=== PATIENT | female | born 1975 | race Caucasian/White ===

== ENCOUNTER 2022-05-22 08:29 | Outpatient (REF) | payer OTHER, SELFPAY ==
[2022-05-22 11:23] LABS: MANUAL DIFF FLAG NO
[2022-05-22 11:29] LABS: Basophils Percent Auto 0.4 % (0-2); Eosinophils Absolute Auto 0.1 X10*3/uL (0.0-0.4); Eosinophils Percent Auto 1.7 % (0-4); Hematocrit 37.2 % (37.0-47.0); Hemoglobin 11.6 g/dl (12.0-16.0); Imm Gran Abs Auto 0.01 X10*3/uL (0.00-0.03); Imm Gran Pct Auto 0.2 % (0.0-0.4); Lymphocytes Absolute Auto 1.3 X10*3/uL (1.2-4.9); Lymphocytes Percent Auto 24.2 % (20-40); Mean Corpuscular HGB Conc 31.2 g/dl (31.0-35.0); Mean Corpuscular Hemoglobin 25.8 pg (27.0-33.0); Mean Corpuscular Volume 82.7 fL (80.0-98.0); Monocytes Absolute Auto 0.3 X10*3/uL (0.1-1.2); Monocytes Percent Auto 5.8 % (2-11); Neutrophils Absolute Auto 3.5 x10*3/uL (2.0-8.3); Neutrophils Percent Auto 67.7 % (45-73); Platelet Count 303 X10*3/uL (160-400); Red Cell Distribution Width 15.9 % (11.0-16.0); White Blood Count 5.2 X10*3/uL (4.8-10.8)
[2022-05-22 12:21] LABS: Alanine Aminotransferase 36 U/L (0-31); Albumin Level 3.7 g/dL (3.5-5.0); Alkaline Phosphatase 101 U/L (39-117); Anion Gap 13 (12-20); Aspartate Amino Transferase 35 U/L (5-31); Bilirubin Total 0.4 mg/dL (0.0-1.0); Blood Urea Nitrogen 12 mg/dL (9-16); Calcium 9.1 mg/dL (8.4-10.2); Carbon Dioxide 28 mmol/L (22-29); Chloride 102 mmol/L (96-108); Cholesterol 200 mg/dL; Estimated Glomerular Filt Rate > 60; Glucose Fasting 117 mg/dL (60-99); HDL Cholesterol 50 mg/dL; LDL Cholesterol Calculated 129 mg/dl; Potassium 4.4 mmol/L (3.3-5.1); Sodium 139 mmol/L (135-145); TSH reflex Free T4 2.68 uIU/mL (0.32-4.0); Total Protein 7.4 g/dL (6.5-8.0); Triglycerides 109 mg/dL
[2022-05-22 12:31] LABS: Estimated Average Glucose 137 mg/dL; Hemoglobin A1c % 6.4 %
== END 2022-05-22 08:30 | disposition home or self-care (01) ==
LOC: HO.HMGCLDS 08:29
PROVIDERS: PCP Internal Medicine; Visit Provider Internal Medicine
DX: Z00.00 Encounter for general adult medical examination without abnormal findings (principal); E66.3 Overweight
CPT/HCPCS: 36415; 80053; 80061; 83036; 84443; 85025

== ENCOUNTER 2022-11-29 13:55 | Outpatient (AMB) | payer OTHER, SELFPAY ==
--- NOTE | 2022-11-29 14:02 | MHC.PC.OV ---
Vital Signs 11/29/22 14:03 Height 5 ft 6 in Weight 309 lb 6 oz BMI 49.9 BP 152/88 H Blood Pressure Location Lt brachial Position Sitting Pulse 74 Pulse Source Pulse Oximeter Pulse Oximetry (%) 97 Oxygen Delivery Method Room Air Intake Visit Reasons: 1 month follow up HTN Intake Note: pt is here for 1 month follow up for HTN Allergies No Known Allergies Allergy (Verified 11/29/22 14:05) Medication List - Last Reconciled 11/29/22 by Lisa Luo MD olmesartan 40 mg PO DAILY Tobacco use date assessed: 11/29/22 Dental Screening Dental Screen Date: 11/29/22 Did you have a dental visit in the last 12 months?: Yes Did you have a dental problem in the last 6 months where you did not have access to dental care?: No Was dental information given to patient?: Patient has dentist HPI 1 month follow up HTN HPI Details Pt presents for f/u HTN. Pt's 21-year-old son was diagnosed with T-cell lymphoma. Patient has been compliant taking olmesartan regularly. PFSH Family History Mother Mental health disorder Father HTN (hypertension) Social History Household Members Other:: lives with son, 4 adult children, works at [employer], smokes 4 cig, Housing: House Patient Tobacco Use Status: Current everyday Tobacco user Cigarettes Per Day: 4 e-Cigarette/Vaping Use: Never Used service: No Current occupational status: employed Cognitive needs: No Hearing needs: No Vision needs: No Questionnaire Thrive Questionnaire Date Thrive assessed: 05/22/22 MIGUEL ANGEL-7 AMB Questionnaire MIGUEL ANGEL-7 Date MIGUEL ANGEL - 7 assessed: 05/22/22 Source: Developed by Drs. Duane Pan, Janina García, Jones Johnson and colleagues, with an educational michelle from [employer]. Review of Systems Const All systems reviewed & are unremarkable except as noted in HPI and below Reports no additional complaints Eyes Reports no additional complaints ENT Reports no additional complaints Card Reports no additional complaints Resp Reports no additional complaints GI Reports no additional complaints Reports no additional complaints Physical exam (Primary Care) Vital Signs: Last Vital Signs Pulse 74 11/29/22 14:03 BP 152/88 H 11/29/22 14:03 Pulse Ox 97 11/29/22 14:03 Oxygen Delivery Method Room Air 11/29/22 14:03 BMI result Body Mass Index 49.9 Tobacco/Smoking Status: Tobacco use Status Tobacco use date assessed 11/29/22 11/29/22 14:08 Patient Tobacco Use Status Current everyday Tobacco 11/29/22 14:08 e-Cigarette/Vaping Use Never Used 11/29/22 14:08 Thrive Assessment: Date of Thrive Assessment Date Thrive assessed 05/22/22 11/29/22 14:08 Const General: no acute distress HENMT Mouth: Normal oral and palatal mucosa present Throat: Yes posterior oropharynx normal Neck Neck: Yes supple Resp Effort & Inspection: normal respiratory effort Auscultation: clear to auscultation bilaterally Cardio Rhythm: regular rhythm Heart sounds: S1 normal heart sound present and S2 normal heart sound present Assessment and Plan Assessment & Plan (1) HTN (hypertension): Code(s): I10 - Essential (primary) hypertension Plan: Add 5 mg of amlodipine to olmesartan follow-up in 1 month for blood pressure check (2) Hyperlipidemia: Code(s): E78.5 - Hyperlipidemia, unspecified Plan: Continue low-cholesterol diet patient will return tomorrow for fasting blood work (3) Hyperglycemia: Comment: A1C 6.4, 06/20 , started ADA diet Code(s): R73.9 - Hyperglycemia, unspecified Plan: Checking A1c Orders: Orders Comprehensive [place]. Panel Fast Today E78.5 - Hyperlipidemia, unspecified, I10 - Essential (primary) hypertension, R73.9 - Hyperglycemia, unspecified, R79.89 - Other specified abnormal findings of blood chemistry Hemoglobin A1c Today E78.5 - Hyperlipidemia, unspecified, I10 - Essential (primary) hypertension, R73.9 - Hyperglycemia, unspecified, R79.89 - Other specified abnormal findings of blood chemistry Lipid Panel Today E78.5 - Hyperlipidemia, unspecified, I10 - Essential (primary) hypertension, R73.9 - Hyperglycemia, unspecified, R79.89 - Other specified abnormal findings of blood chemistry Complete Blood Count Auto Diff Today E78.5 - Hyperlipidemia, unspecified, I10 - Essential (primary) hypertension, R73.9 - Hyperglycemia, unspecified, R79.89 - Other specified abnormal findings of blood chemistry Microalbumin, Random (w Creat) Today E78.5 - Hyperlipidemia, unspecified, I10 - Essential (primary) hypertension, R73.9 - Hyperglycemia, unspecified, R79.89 - Other specified abnormal findings of blood chemistry Hepatitis B,C Profile Today R79.89 - Other specified abnormal findings of blood chemistry Medications: New amlodipine 5 mg PO DAILY 90 tabs 0RF Coding Level of Care Code Est Pt Level 3 (41008) Diagnoses HTN (hypertension) I10 Hyperlipidemia E78.5 Hyperglycemia R73.9
[2022-11-29 14:03] VITALS: BP 152/88; PULSE 74; O2SAT 97; BMI 49.9
== END 2022-11-29 14:59 | disposition home or self-care (01) ==
PROVIDERS: PCP Internal Medicine; Visit Provider Internal Medicine
DX: I10 Essential (primary) hypertension (principal); E78.5 Hyperlipidemia, unspecified; R73.9 Hyperglycemia, unspecified
CPT/HCPCS: 99213

== ENCOUNTER 2023-03-07 12:39 | Outpatient (AMB) | payer OTHER, SELFPAY ==
--- NOTE | 2023-03-07 12:40 | A.OFFPC_ITS ---
Vital Signs 03/07/23 12:47 Height 5 ft 6 in Weight 315 lb BMI 50.8 BP 158/88 H Blood Pressure Location Lt brachial Position Sitting Pulse 79 Pulse Source Pulse Oximeter Pulse Oximetry (%) 99 Oxygen Delivery Method Room Air Intake Visit Reasons: BP Re-check Intake Note: Pt is here today for a b/p re-check Allergies No Known Allergies Allergy (Verified 03/07/23 12:50) Tobacco use date assessed: 03/07/23 Dental Screening Dental Screen Date: 03/07/23 Did you have a dental visit in the last 12 months?: Yes Did you have a dental problem in the last 6 months where you did not have access to dental care?: No Was dental information given to patient?: Patient has dentist [facility] Family History Mother Mental health disorder Father HTN (hypertension) Social History Household Members Other:: lives with son, 4 adult children, works at [employer], smokes 4 cig, Housing: House Patient Tobacco Use Status: Current everyday Tobacco user Cigarettes Per Day: 4 e-Cigarette/Vaping Use: Never Used service: No Current occupational status: employed Cognitive needs: No Hearing needs: No Vision needs: No Questionnaire Thrive Questionnaire Date Thrive assessed: 05/22/22 MIGUEL ANGEL-7 AMB Questionnaire MIGUEL ANGEL-7 Date MIGUEL ANGEL - 7 assessed: 05/22/22 Source: Developed by Drs. Duane Pan, Janina García, Jones Johnson and colleagues, with an educational michelle from [employer]. Physical exam (Primary Care) Vital Signs: Last Vital Signs Pulse 79 03/07/23 12:47 BP 158/88 H 03/07/23 12:47 Pulse Ox 99 03/07/23 12:47 Oxygen Delivery Method Room Air 03/07/23 12:47 BMI result Body Mass Index 50.8 Tobacco/Smoking Status: Tobacco use Status Tobacco use date assessed 03/07/23 03/07/23 12:51 Patient Tobacco Use Status Current everyday Tobacco 03/07/23 12:40 e-Cigarette/Vaping Use Never Used 03/07/23 12:40 Thrive Assessment: Date of Thrive Assessment Date Thrive assessed 05/22/22 03/07/23 12:40 Const General: no acute distress HENMT Head: Yes normal to inspection Throat: Yes posterior oropharynx normal Resp Effort & Inspection: normal respiratory effort Auscultation: clear to auscultation bilaterally Cardio Rhythm: regular rhythm Heart sounds: S1 normal heart sound present and S2 normal heart sound present GI Inspection: Yes normal to inspection Palpation (GI): Soft to palpation Percussion: Yes normal to percussion Auscultation: normal bowel sounds Assessment and Plan Assessment & Plan (1) HTN (hypertension): Code(s): I10 - Essential (primary) hypertension Plan: Amlodipine 5 mg and olmesartan 40 mg will be changed to combination amlodipine/olmesartan 10/40 and Dyazide will be added. Patient will have fasting blood work in 2 weeks and will follow-up in 1 month for blood pressure check (2) Hyperglycemia: Comment: A1C 6.4, 06/20 , started ADA diet Code(s): R73.9 - Hyperglycemia, unspecified Plan: ADA diet increase physical activity weight loss discussed with the patient. She will have A1c checked in 2 weeks (3) Sleep apnea: Code(s): G47.30 - Sleep apnea, unspecified Plan: For poorly controlled hypertension and witnessed apnea episodes sleep studies will be obtained to rule out sleep apnea (4) Elevated LFTs: Code(s): R79.89 - Other specified abnormal findings of blood chemistry Orders: Orders Comprehensive [place]. Panel Fast 2 Weeks E66.3 - Overweight, E78.5 - Hyperlipidemia, unspecified, I10 - Essential (primary) hypertension, R73.9 - Hyperglycemia, unspecified, R79.89 - Other specified abnormal findings of blood chemistry Hemoglobin A1c 2 Weeks E66.3 - Overweight, E78.5 - Hyperlipidemia, unspecified, I10 - Essential (primary) hypertension, R73.9 - Hyperglycemia, unspecified, R79.89 - Other specified abnormal findings of blood chemistry Complete Blood Count Auto Diff 2 Weeks E66.3 - Overweight, E78.5 - Hyperlipidemia, unspecified, I10 - Essential (primary) hypertension, R73.9 - Hyperglycemia, unspecified, R79.89 - Other specified abnormal findings of blood chemistry Hepatitis A,B,C Profile 2 Weeks E66.3 - Overweight, E78.5 - Hyperlipidemia, unspecified, I10 - Essential (primary) hypertension, R73.9 - Hyperglycemia, unspecified, R79.89 - Other specified abnormal findings of blood chemistry RT home sleep study Today G47.30 - Sleep apnea, unspecified, I10 - Essential (primary) hypertension Lipid Panel 2 Weeks E66.3 - Overweight, E78.5 - Hyperlipidemia, unspecified, I10 - Essential (primary) hypertension, R73.9 - Hyperglycemia, unspecified, R79.89 - Other specified abnormal findings of blood chemistry Microalbumin, Random (w Creat) 2 Weeks E66.3 - Overweight, E78.5 - Hyperlipidemia, unspecified, I10 - Essential (primary) hypertension, R73.9 - Hyperglycemia, unspecified, R79.89 - Other specified abnormal findings of blood chemistry Medications: New amlodipine-olmesartan 10-40 mg 1 tab PO DAILY 90 tabs 0RF triamterene-hydrochlorothiazid 37.5-25 mg 1 cap PO DAILY 90 caps 0RF Discontinued olmesartan Discontinued Reason: Doctor's Order 40 mg PO DAILY 90 tabs 1RF amlodipine Discontinued Reason: Doctor's Order 5 mg PO DAILY 90 tabs 0RF Coding Level of Care Code Est Pt Level 4 (92471) Diagnoses HTN (hypertension) I10 Hyperglycemia R73.9 Sleep apnea G47.30 Elevated LFTs R79.89
[2023-03-07 12:47] VITALS: BP 158/88; PULSE 79; O2SAT 99; BMI 50.8
== END 2023-03-07 13:26 | disposition home or self-care (01) ==
PROVIDERS: PCP Internal Medicine; Visit Provider Internal Medicine
DX: I10 Essential (primary) hypertension (principal); R73.9 Hyperglycemia, unspecified; G47.30 Sleep apnea, unspecified
CPT/HCPCS: 99214

== ENCOUNTER 2023-04-09 11:18 | Outpatient (AMB) | payer OTHER, SELFPAY ==
--- NOTE | 2023-04-09 11:21 | A.OFFPC_ITS ---
Vital Signs 04/09/23 11:22 Height 5 ft 6 in Weight 312 lb BMI 50.4 BP 142/72 H Blood Pressure Location Lt brachial Position Sitting Pulse 75 Pulse Source Pulse Oximeter Pulse Oximetry (%) 100 Oxygen Delivery Method Room Air Intake Visit Reasons: BP, med side effects Intake Note: Pt is here today for a follow up visit. Pt sates that her BP medication Triamterene-HCTZ 37.5-25 mg is making her dizzy, she gets cramps in her legs, flutter in her chest and her fingers turn white. Allergies No Known Allergies Allergy (Verified 03/07/23 12:50) Medication List - Last Reconciled 04/09/23 by Lisa Luo MD amlodipine-olmesartan 10-40 mg 1 tab PO DAILY triamterene-hydrochlorothiazid 37.5-25 mg 1 cap PO DAILY Tobacco use date assessed: 04/09/23 HPI BP, med side effects HPI Details Patient presents for the follow-up on hypertension, patient reports side effects since started taking Dyazide 2 weeks ago :having muscle aches, increased urination and feeling of coldness in her fingers and occasion headaches. Patient has been walking 3 times a week and eating healthy. PFSH Family History Mother Mental health disorder Father HTN (hypertension) Social History Household Members Other:: lives with son, 4 adult children, works at [employer], smokes 4 cig, Housing: House Patient Tobacco Use Status: Current everyday Tobacco user Cigarettes Per Day: 4 e-Cigarette/Vaping Use: Never Used service: No Current occupational status: employed Cognitive needs: No Hearing needs: No Vision needs: No Questionnaire Thrive Questionnaire Date Thrive assessed: 05/22/22 MIGUEL ANGEL-7 AMB Questionnaire MIGUEL ANGEL-7 Date MIGUEL ANGEL - 7 assessed: 05/22/22 Source: Developed by Drs. Duane Pan, Janina García, Jones Johnson and colleagues, with an educational michelle from [employer]. Review of Systems Const All systems reviewed & are unremarkable except as noted in HPI and below Reports no additional complaints Eyes Reports no additional complaints Card Reports no additional complaints Resp Reports no additional complaints GI Reports no additional complaints Reports no additional complaints Physical exam (Primary Care) Vital Signs: Last Vital Signs Pulse 75 04/09/23 11:22 BP 142/72 H 04/09/23 11:22 Pulse Ox 100 04/09/23 11:22 Oxygen Delivery Method Room Air 04/09/23 11:22 BMI result Body Mass Index 50.4 Tobacco/Smoking Status: Tobacco use Status Tobacco use date assessed 04/09/23 04/09/23 11:36 Patient Tobacco Use Status Current everyday Tobacco 04/09/23 11:21 e-Cigarette/Vaping Use Never Used 04/09/23 11:21 Thrive Assessment: Date of Thrive Assessment Date Thrive assessed 05/22/22 04/09/23 11:21 Const General: no acute distress HENMT Head: Yes normal to inspection Face and sinus: Yes normal facial exam Resp Effort & Inspection: normal respiratory effort Auscultation: clear to auscultation bilaterally Cardio Rhythm: regular rhythm Heart sounds: S1 normal heart sound present and S2 normal heart sound present GI Inspection: Yes normal to inspection Extrem General: Yes no clubbing, cyanosis or edema Assessment and Plan Assessment & Plan (1) Hyperglycemia: Comment: A1C 6.4, 06/20 , started ADA diet Code(s): R73.9 - Hyperglycemia, unspecified Plan: Continue ADA diet regular exercise and weight lost, check A1c today (2) HTN (hypertension): Code(s): I10 - Essential (primary) hypertension Plan: Patient will continue both medications, comprehensive panel will be checked today. She will follow-up in 2 weeks and if she still has side effects from Dyazide, medication will be changed (3) Elevated LFTs: Code(s): R79.89 - Other specified abnormal findings of blood chemistry Plan: Avoid NSAIDs alcohol simple carbohydrates check LFTs and hepatitis panel today Orders: Orders Complete Blood Count Auto Diff Today I10 - Essential (primary) hypertension, R73.9 - Hyperglycemia, unspecified Hemoglobin A1c Today I10 - Essential (primary) hypertension, R73.9 - Hyperglycemia, unspecified, R79.89 - Other specified abnormal findings of blood chemistry Hepatitis B,C Profile Today I10 - Essential (primary) hypertension, R73.9 - Hyperglycemia, unspecified, R79.89 - Other specified abnormal findings of blood chemistry Comprehensive Met. Panel Today I10 - Essential (primary) hypertension, R73.9 - Hyperglycemia, unspecified, R79.89 - Other specified abnormal findings of blood chemistry Coding Level of Care Code Est Pt Level 4 (84623) Diagnoses Hyperglycemia R73.9 HTN (hypertension) I10 Elevated LFTs R79.89
[2023-04-09 11:22] VITALS: BP 142/72; PULSE 75; O2SAT 100; BMI 50.4
== END 2023-04-09 12:15 | disposition home or self-care (01) ==
PROVIDERS: PCP Internal Medicine; Visit Provider Internal Medicine
DX: R73.9 Hyperglycemia, unspecified (principal); I10 Essential (primary) hypertension
CPT/HCPCS: 99214

== ENCOUNTER 2023-04-09 12:15 | Outpatient (REF) | payer OTHER, SELFPAY ==
[2023-04-09 13:14] LABS: MANUAL DIFF FLAG NO
[2023-04-09 13:28] LABS: Basophils Percent Auto 0.7 % (0-2); Eosinophils Absolute Auto 0.1 X10*3/uL (0.0-0.4); Eosinophils Percent Auto 1.7 % (0-4); Hematocrit 36.3 % (37.0-47.0); Hemoglobin 11.5 g/dl (12.0-16.0); Imm Gran Abs Auto 0.01 X10*3/uL (0.00-0.03); Imm Gran Pct Auto 0.2 % (0.0-0.4); Lymphocytes Absolute Auto 1.4 X10*3/uL (1.2-4.9); Lymphocytes Percent Auto 23.5 % (20-40); Mean Corpuscular HGB Conc 31.7 g/dl (31.0-35.0); Mean Corpuscular Hemoglobin 26.3 pg (27.0-33.0); Mean Corpuscular Volume 82.9 fL (80.0-98.0); Mean Platelet Volume 10.1 fL (9.4-12.3); Monocytes Absolute Auto 0.3 X10*3/uL (0.1-1.2); Monocytes Percent Auto 5.7 % (2-11); Neutrophils Absolute Auto 4.1 x10*3/uL (2.0-8.3); Neutrophils Percent Auto 68.2 % (45-73); Platelet Count 379 X10*3/uL (160-400); Red Blood Count 4.38 X10*6/uL (4.20-5.50); Red Cell Distribution Width 15.7 % (11.0-16.0)
[2023-04-09 13:35] LABS: Estimated Average Glucose 143 mg/dL; Hemoglobin A1c % 6.6 % (<6.0)
[2023-04-09 14:02] LABS: Alanine Aminotransferase 69 U/L (0-31); Albumin Level 3.8 g/dL (3.5-5.0); Alkaline Phosphatase 88 U/L (39-117); Anion Gap 10 (12-20); Aspartate Amino Transferase 64 U/L (5-31); Bilirubin Total 0.4 mg/dL (0.0-1.0); Blood Urea Nitrogen 14 mg/dL (9-16); Calcium 9.6 mg/dL (8.4-10.2); Carbon Dioxide 29 mmol/L (22-29); Chloride 101 mmol/L (96-108); Estimated Glomerular Filt Rate > 60; Glucose Random 173 mg/dL (60-115); Potassium 3.8 mmol/L (3.3-5.1); Sodium 136 mmol/L (135-145); Total Protein 7.9 g/dL (6.5-8.0)
[2023-04-10 08:02] LABS: HBS Num1 0.61 mIU/mL (0-7.99); HBc Num1 0.19 S/CO (0.00-0.79); HBsAGNum1 0.23 S/CO (0.00-0.99); Hepatitis B Core Antibody Nonreactive (Nonreactive); Hepatitis B Surface Antigen Negative (Negative); ~HepC Num1 0.14 S/CO (0.00-0.79); ~Hepatitis B Surface Antibody NONREACTIVE (Nonreactive); ~Hepatitis C Antibody Nonreactive (Nonreactive)
== END 2023-04-09 12:16 | disposition home or self-care (01) ==
LOC: HO.HMGCLDS 12:15
PROVIDERS: PCP Internal Medicine; Visit Provider Internal Medicine
DX: R73.9 Hyperglycemia, unspecified (principal); I10 Essential (primary) hypertension
CPT/HCPCS: 36415; 80053; 83036; 85025; 86704; 86706; 86803; 87340

== ENCOUNTER 2023-05-27 10:32 | Outpatient (AMB) | payer OTHER, SELFPAY ==
[2023-05-27 10:40] VITALS: BP 136/74; PULSE 72; O2SAT 98; BMI 50.4
--- NOTE | 2023-05-27 10:40 | MHC.PC.OV ---
Vital Signs 05/27/23 10:40 Height 5 ft 6 in Weight 312 lb BMI 50.4 BP 136/74 Blood Pressure Location Lt brachial Position Sitting Pulse 72 Pulse Source Pulse Oximeter Pulse Oximetry (%) 98 Oxygen Delivery Method Room Air Intake Visit Reasons: Annual PE Intake Note: Pt is here today for PE. Allergies No Known Allergies Allergy (Verified 05/27/23 10:46) Medication List - Last Reconciled 05/27/23 by Lisa Luo MD amlodipine-olmesartan 10-40 mg 1 tab PO DAILY blood sugar diagnostic (Accu-Chek Guide test strips) As directed to test blood sugar once a day blood-glucose meter (Accu-Chek Guide Glucose Meter) As directed lancets (Accu-Chek Softclix Lancets) As directed to test blood sugar once a day metformin ER 750 mg PO DAILY triamterene-hydrochlorothiazid 37.5-25 mg 1 cap PO DAILY Tobacco use date assessed: 05/27/23 Dental Screening Dental Screen Date: 05/27/23 Did you have a dental visit in the last 12 months?: Yes Did you have a dental problem in the last 6 months where you did not have access to dental care?: No Was dental information given to patient?: Patient has dentist HPI Annual PE HPI Details Patient presents for PE. PFSH Family History Mother Mental health disorder Father HTN (hypertension) Social History Household Members Other:: lives with son, 4 adult children, works at [employer], smokes 4 cig, Housing: House Patient Tobacco Use Status: Current everyday Tobacco user Cigarettes Per Day: 4 e-Cigarette/Vaping Use: Never Used service: No Current occupational status: employed Cognitive needs: No Hearing needs: No Vision needs: No Questionnaire PHQ-9 Over the last 2 weeks, how often have you been bothered by any of the following problems? 1. Little interest or pleasure in doing things: not at all 2. Feeling down, depressed, or hopeless: not at all 3. Trouble falling or staying asleep, or sleeping too much: not at all 4. Feeling tired or having little energy: not at all 5. Poor appetite or overeating: not at all 6. Feeling bad about yourself - or that you are a failure or have let yourself or your family down: not at all 7. Trouble concentrating on things, such as reading the newspaper or watching television: not at all 8. Moving or speaking so slowly that other people could have noticed. Or the opposite - being so fidgety or restless that you have been moving around a lot more than usual: not at all 9. Thoughts that you would be better off or of hurting yourself in some way: not at all Total score: 0 Depression Screening Interpretation: Negative Depression Screening Done: Yes Source: Developed by Drs. Duane Pan, Janina García, Jones Johnson and colleagues, with an educational michelle from [employer]. Thrive Questionnaire Date Thrive assessed: 05/27/23 I am a: Patient What is your living situation today?: I have a steady place to live Within the past 12 months, did the food you bought not last and you didn't have the money to get more?: Never true Within the past 12 months, did you worry whether your food would run out before you got money to buy more?: Never true Do you have trouble paying for medicines?: No Do you have trouble getting transportation to medical appointments?: No Do you have trouble paying your heating and electricity bill?: No Do you have trouble taking care of your child, family member or friend?: No Do you have trouble with day-to-day activities such as bathing, preparing meals, shopping, managing finances, etc.?: No Are you currently unemployed and looking for a job?: No Are you interested in more education?: No Please select the resources that you would like help with: None Currently or been in a relationship where the following occur: no concerns reported THRIVE Score: 0 AUDIT C Alcohol Use Questionnaire (AUDIT-C) 1. How often do you have a drink containing alcohol?: Monthly or less 2. How many drinks containing alcohol do you have on a typical day when you are drinking?: 1 or 2 3. How often do you have six or more drinks on one occasion?: Never Total Score: 1 MIGUEL ANGEL-7 AMB Questionnaire MIGUEL ANGEL-7 Date MIGUEL ANGEL - 7 assessed: 05/27/23 Feeling nervous, anxious, or on edge: 0 = Not at all Not being able to stop or control worryin = Not at all Worrying too much about different things: 0 = Not at all Trouble relaxin = Not at all Being so restless that it is hard to sit still: 0 = Not at all Becoming easily annoyed or irritable: 0 = Not at all Feeling afraid as if something awful might happen: 0 = Not at all Total MIGUEL ANGEL-7 score (0-4 normal; 5-9 mild; 10-14 moderate; 15-21 severe): 0 Source: Developed by Drs. Duane Pan, Janina Garcaí, Jones Johnson and colleagues, with an educational michelle from [employer]. Review of Systems Const All systems reviewed & are unremarkable except as noted in HPI and below Reports no additional complaints Eyes Reports no additional complaints ENT Reports no additional complaints Card Reports no additional complaints Resp Reports no additional complaints GI Reports no additional complaints Reports no additional complaints Physical exam (Primary Care) Vital Signs: Last Vital Signs Pulse 72 05/27/23 10:40 BP 136/74 05/27/23 10:40 Pulse Ox 98 05/27/23 10:40 Oxygen Delivery Method Room Air 05/27/23 10:40 BMI result Body Mass Index 50.4 Tobacco/Smoking Status: Tobacco use Status Tobacco use date assessed 05/27/23 05/27/23 10:48 Patient Tobacco Use Status Current everyday Tobacco 05/27/23 10:40 e-Cigarette/Vaping Use Never Used 05/27/23 10:40 PHQ-9: PHQ-9 Score PHQ-9: Total score 0 05/27/23 10:50 Depression Screening Interpretation: Negative Thrive Assessment: Date of Thrive Assessment Date Thrive assessed 05/27/23 05/27/23 10:50 Currently or been in a relationship where the following occur: no concerns reported Const General: no acute distress HENMT Head: Yes normal to inspection Ears: hearing grossly normal bilaterally General nose exam: Normal external nose present Face and sinus: Yes normal facial exam Mouth: Normal oral and palatal mucosa present Throat: Yes posterior oropharynx normal Eyes General: appearance normal, both eyes and all related structures Neck Neck: Yes no lymphadenopathy and Yes supple Resp Effort & Inspection: normal respiratory effort Auscultation: clear to auscultation bilaterally Cardio Rhythm: regular rhythm Heart sounds: S1 normal heart sound present and S2 normal heart sound present GI Inspection: Yes normal to inspection Palpation (GI): Soft to palpation Percussion: Yes normal to percussion Auscultation: normal bowel sounds Assessment and Plan Assessment & Plan (1) Sleep apnea: Code(s): G47.30 - Sleep apnea, unspecified Plan: Patient will have a home sleep study (2) Hyperlipidemia: Code(s): E78.5 - Hyperlipidemia, unspecified Plan: Continue low-cholesterol diet (3) HTN (hypertension): Code(s): I10 - Essential (primary) hypertension Plan: Continue current medications (4) Annual physical exam: Code(s): Z00.00 - Encounter for general adult medical examination without abnormal findings Plan: Well-balanced diet regular physical activity weight loss discussed with the patient. Patient will be referred to GI for colonoscopy. She is up-to-date with the Pap smear mammogram [facility] (5) DM type 2 (diabetes mellitus, type 2): Code(s): E11.9 - Type 2 diabetes mellitus without complications Plan: A1c is 6.6, ADA diet increase exercise weight loss discussed with the patient metformin ER 750 daily will be started. Patient was advised to monitor her fasting blood glucose (6) Obesity, morbid, BMI 50 or higher: Code(s): E66.01 - Morbid (severe) obesity due to excess calories Plan: INCREASE PHYSICAL ACTIVITY, DECREASE CALORIC INTAKE DISCUSSED WITH THE PATIENT. ZEPBOUND 2.5 MG WILL BE STARTED FOR THE 1ST MONTH. IF PATIENT TOLERATES MEDICATION WELL THE DOSE WILL BE INCREASED TO 5 MG FOR THE NEXT MONTH. FOLLOW-UP IN 2 MONTHS Orders: Orders Comprehensive [place]. Panel Fast 2 Months E11.9 - Type 2 diabetes mellitus without complications, E78.5 - Hyperlipidemia, unspecified, G47.30 - Sleep apnea, unspecified, I10 - Essential (primary) hypertension, Z00.00 - Encounter for general adult medical examination without abnormal findings Hemoglobin A1c 2 Months E11.9 - Type 2 diabetes mellitus without complications, E78.5 - Hyperlipidemia, unspecified, G47.30 - Sleep apnea, unspecified, I10 - Essential (primary) hypertension, Z00.00 - Encounter for general adult medical examination without abnormal findings Lipid Panel 2 Months E11.9 - Type 2 diabetes mellitus without complications, E78.5 - Hyperlipidemia, unspecified, G47.30 - Sleep apnea, unspecified, I10 - Essential (primary) hypertension, Z00.00 - Encounter for general adult medical examination without abnormal findings Complete Blood Count Auto Diff 2 Months E11.9 - Type 2 diabetes mellitus without complications, E78.5 - Hyperlipidemia, unspecified, G47.30 - Sleep apnea, unspecified, I10 - Essential (primary) hypertension, Z00.00 - Encounter for general adult medical examination without abnormal findings Microalbumin, Random (w Creat) 2 Months E11.9 - Type 2 diabetes mellitus without complications, E78.5 - Hyperlipidemia, unspecified, G47.30 - Sleep apnea, unspecified, I10 - Essential (primary) hypertension, Z00.00 - Encounter for general adult medical examination without abnormal findings Referrals Gastroenterology Referral Z00.00 - Encounter for general adult medical examination without abnormal findings Medications: New tirzepatide (weight loss) (Zepbound) 2.5 mg (0.5 mL) subcut QWEEK 4 weeks 2 mL 0RF metformin ER 750 mg PO DAILY 90 tabs 1RF Refilled amlodipine-olmesartan 10-40 mg 1 tab PO DAILY 90 tabs 3RF triamterene-hydrochlorothiazid 37.5-25 mg 1 cap PO DAILY 90 caps 3RF Coding Level of Care Code Est Pt Prev Care 40-64y(86699) Diagnoses Sleep apnea G47.30 Hyperlipidemia E78.5 HTN (hypertension) I10 Annual physical exam Z00.00 DM type 2 (diabetes mellitus, type 2) E11.9 Obesity, morbid, BMI 50 or higher E66.01
== END 2023-05-27 11:28 | disposition home or self-care (01) ==
PROVIDERS: PCP Internal Medicine; Visit Provider Internal Medicine
DX: Z00.00 Encounter for general adult medical examination without abnormal findings (principal); E11.9 Type 2 diabetes mellitus without complications; E66.01 Morbid (severe) obesity due to excess calories; Z68.43 Body mass index [BMI] 50.0-59.9, adult; G47.30 Sleep apnea, unspecified; E78.5 Hyperlipidemia, unspecified; I10 Essential (primary) hypertension
CPT/HCPCS: 99396

== ENCOUNTER 2024-06-09 09:41 | Outpatient (REF) | payer OTHER, SELFPAY ==
[2024-06-09 13:53] LABS: MANUAL DIFF FLAG NO
[2024-06-09 13:58] LABS: Basophils Percent Auto 0.6 % (0-2); Eosinophils Absolute Auto 0.1 X10*3/uL (0.0-0.4); Eosinophils Percent Auto 2.1 % (0-4); Hemoglobin 10.9 g/dl (12.0-16.0); Imm Gran Abs Auto 0.01 X10*3/uL (0.00-0.03); Imm Gran Pct Auto 0.2 % (0.0-0.4); Lymphocytes Absolute Auto 1.3 X10*3/uL (1.2-4.9); Lymphocytes Percent Auto 27.4 % (20-40); Mean Corpuscular HGB Conc 32.1 g/dl (31.0-35.0); Mean Corpuscular Hemoglobin 28.1 pg (27.0-33.0); Mean Corpuscular Volume 87.6 fL (80.0-98.0); Monocytes Absolute Auto 0.3 X10*3/uL (0.1-1.2); Neutrophils Percent Auto 62.7 % (45-73); Platelet Count 281 X10*3/uL (160-400); Red Blood Count 3.88 X10*6/uL (4.20-5.50); White Blood Count 4.9 X10*3/uL (4.8-10.8)
[2024-06-09 14:13] LABS: Alanine Aminotransferase 50 U/L (0-31); Albumin Level 3.5 g/dL (3.5-5.0); Alkaline Phosphatase 91 U/L (39-117); Anion Gap 12 (12-20); Aspartate Amino Transferase 70 U/L (5-31); Bilirubin Total 0.3 mg/dL (0.0-1.0); Blood Urea Nitrogen 15 mg/dL (9-16); Carbon Dioxide 23 mmol/L (22-29); Chloride 103 mmol/L (96-108); Cholesterol 176 mg/dL (<200); Estimated Average Glucose 214 mg/dL; Estimated Glomerular Filt Rate > 60; Glucose Fasting 172 mg/dL (60-99); HDL Cholesterol 45 mg/dL (>40); Hemoglobin A1C 220.2719 umol/L; Hemoglobin A1c % 9.1 % (<6.0); LDL Cholesterol Calculated 101 mg/dL (<100); Potassium 4.2 mmol/L (3.3-5.1); Sodium 134 mmol/L (135-145); Total Hemoglobin (HGBA1C) 2887.0558 umol/L; Total Protein 8.1 g/dL (6.5-8.0); Triglycerides 150 mg/dL (<150)
[2024-06-09 14:38] LABS: Creatinine Urine 91.45 mg/dL; Microalbum/Creatinine Ratio Ur 9.8 ug/mg cr (<30)
== END 2024-06-09 09:42 | disposition home or self-care (01) ==
LOC: HO.HMGCLDS 09:41
PROVIDERS: PCP Internal Medicine; Visit Provider Internal Medicine
DX: Z00.00 Encounter for general adult medical examination without abnormal findings (principal); E11.9 Type 2 diabetes mellitus without complications; I10 Essential (primary) hypertension; E78.5 Hyperlipidemia, unspecified; G47.30 Sleep apnea, unspecified
CPT/HCPCS: 36415; 80053; 80061; 82043; 82570; 83036; 85025

== ENCOUNTER 2024-06-10 13:03 | Outpatient (AMB) | payer OTHER, SELFPAY ==
[2024-06-10 13:18] VITALS: BP 136/78; PULSE 93; RESP 20; TEMP 36.9; O2SAT 96; BMI 51.5
--- NOTE | 2024-06-10 13:18 | A.OFFPC_ITS ---
Vital Signs 06/10/24 13:18 Height 5 ft 6 in Weight 319 lb BMI 51.5 BP 136/78 Blood Pressure Location Lt brachial Position Sitting Respiration 20 Pulse 93 Pulse Source Pulse Oximeter Temp 98.4 F Temp Source Oral Pulse Oximetry (%) 96 Oxygen Delivery Method Room Air Intake Visit Reasons: Annual PE Intake Note: Pt is here today for PE. Allergies No Known Allergies Allergy (Verified 06/10/24 13:18) Medication List - Last Reconciled 06/10/24 by Lisa Luo MD albuterol sulfate 90 mcg/actuation 2 puffs inhalation Q6H PRN amlodipine-olmesartan 10-40 mg 1 tab PO DAILY blood sugar diagnostic (Accu-Chek Guide test strips) As directed to test blood sugar once a day blood-glucose meter (Accu-Chek Guide Glucose Meter) As directed lancets (Accu-Chek Softclix Lancets) As directed to test blood sugar once a day metformin ER 750 mg PO DAILY triamterene-hydrochlorothiazid 37.5-25 mg 1 cap PO DAILY Tobacco use date assessed: 06/10/24 Dental Screening Dental Screen Date: 06/10/24 Did you have a dental visit in the last 12 months?: Yes Did you have a dental problem in the last 6 months where you did not have access to dental care?: No Was dental information given to patient?: Patient has dentist HPI Annual PE HPI Details Patient presents for physical. She reports 1 week of cough increased wheezing chest tightness low-grade fever body aches. Patient denies pleurisy or sputum production. She has been using her son's albuterol inhaler with good relief but up to 4 times a day. Patient's insurance denied [employer] and she did not start taking metformin. [facility] Surgical History No pertinent past surgical history Family History Mother Mental health disorder Father HTN (hypertension) Social History Household Members Other:: lives with son, 4 adult children, works at [employer], smokes 4 cig, Housing: House Patient Tobacco Use Status: Current everyday Tobacco user Cigarettes Per Day: 4 e-Cigarette/Vaping Use: Never Used service: No Current occupational status: employed Cognitive needs: No Hearing needs: No Vision needs: No Questionnaire PHQ-9 Over the last 2 weeks, how often have you been bothered by any of the following problems? 1. Little interest or pleasure in doing things: not at all 2. Feeling down, depressed, or hopeless: not at all 3. Trouble falling or staying asleep, or sleeping too much: not at all 4. Feeling tired or having little energy: not at all 5. Poor appetite or overeating: not at all 6. Feeling bad about yourself - or that you are a failure or have let yourself or your family down: not at all 7. Trouble concentrating on things, such as reading the newspaper or watching television: not at all 8. Moving or speaking so slowly that other people could have noticed. Or the opposite - being so fidgety or restless that you have been moving around a lot more than usual: not at all 9. Thoughts that you would be better off or of hurting yourself in some way: not at all Total score: 0 Depression Screening Interpretation: Negative Depression Screening Done: Yes 33991 - PHQ-9 Billing: Yes Source: Developed by Drs. Duane Pan, Janina García, Jones Johnson and colleagues, with an educational michelle from [employer]. Thrive Questionnaire Date Thrive assessed: 06/10/24 I am a: Patient What is your living situation today?: I have a steady place to live Within the past 12 months, did the food you bought not last and you didn't have the money to get more?: Never true Within the past 12 months, did you worry whether your food would run out before you got money to buy more?: Never true Do you have trouble paying for medicines?: Yes Do you have trouble getting transportation to medical appointments?: No Do you have trouble paying your heating and electricity bill?: No Do you have trouble taking care of your child, family member or friend?: No Do you have trouble with day-to-day activities such as bathing, preparing meals, shopping, managing finances, etc.?: No Are you currently unemployed and looking for a job?: No Are you interested in more education?: No Please select the resources that you would like help with: None Currently or been in a relationship where the following occur: No concerns reported THRIVE Score: 0 AUDIT C Alcohol Use Questionnaire (AUDIT-C) 1. How often do you have a drink containing alcohol?: Monthly or less 2. How many drinks containing alcohol do you have on a typical day when you are drinking?: 1 or 2 3. How often do you have six or more drinks on one occasion?: Never Total Score: 1 MIGUEL ANGEL-7 AMB Questionnaire MIGUEL ANGEL-7 Date MIGUEL ANGEL - 7 assessed: 06/10/24 Feeling nervous, anxious, or on edge: 0 = Not at all Not being able to stop or control worryin = Not at all Worrying too much about different things: 0 = Not at all Trouble relaxin = Not at all Being so restless that it is hard to sit still: 0 = Not at all Becoming easily annoyed or irritable: 0 = Not at all Feeling afraid as if something awful might happen: 0 = Not at all Total MIGUEL ANGEL-7 score (0-4 normal; 5-9 mild; 10-14 moderate; 15-21 severe): 0 Source: Developed by Drs. Duane Pan, Janina García, Jones Johnson and colleagues, with an educational michelle from [employer]. MIGUEL ANGEL-7 Assessment Billing MIGUEL ANGEL-7 Assessment Tool: MIGUEL ANGEL-7 Assessment 37993 Review of Systems Const All systems reviewed & are unremarkable except as noted in HPI and below Eyes Reports no additional complaints ENT Reports no additional complaints Card Reports no additional complaints Resp Reports no additional complaints GI Reports no additional complaints Reports no additional complaints Physical exam (Primary Care) Vital Signs: Last Vital Signs Temp 98.4 F 06/10/24 13:18 Pulse 93 06/10/24 13:18 Resp 20 06/10/24 13:18 BP 136/78 06/10/24 13:18 Pulse Ox 96 06/10/24 13:18 Oxygen Delivery Method Room Air 06/10/24 13:18 BMI result Body Mass Index 51.5 Tobacco/Smoking Status: Tobacco use Status Tobacco use date assessed 06/10/24 06/10/24 13:20 Patient Tobacco Use Status Current everyday Tobacco 06/10/24 13:20 e-Cigarette/Vaping Use Never Used 06/10/24 13:20 PHQ-9: PHQ-9 Score PHQ-9: Total score 0 06/10/24 13:27 Depression Screening Interpretation: Negative Thrive Assessment: Date of Thrive Assessment Date Thrive assessed 06/10/24 06/10/24 13:27 Currently or been in a relationship where the following occur: No concerns reported Const General: no acute distress HENMT Head: Yes normal to inspection Face and sinus: Yes normal facial exam Mouth: Normal oral and palatal mucosa present Throat: Yes posterior oropharynx normal Eyes General: appearance normal, both eyes and all related structures Neck Neck: Yes no lymphadenopathy and Yes supple Resp Effort & Inspection: audible wheezes Auscultation: wheezes and diminished lung sounds Cardio Rhythm: regular rhythm Heart sounds: S1 normal heart sound present and S2 normal heart sound present GI Inspection: Yes normal to inspection Palpation (GI): Soft to palpation Percussion: Yes normal to percussion Auscultation: normal bowel sounds Coding Level of Care Code Est Pt Prev Care 40-64y(65356) Diagnoses Obesity, morbid, BMI 50 or higher E66.01 DM type 2 (diabetes mellitus, type 2) E11.9 HTN (hypertension) I10 Annual physical exam Z00.00 Asthma J45.909 Additional Codes MIGUEL ANGEL-7 Assessment Billing - MIGUEL ANGEL-7 Assessment Tool: MIGUEL ANGEL-7 Assessment 39052 ([id number]) PHQ-9 - 35467 - PHQ-9 Billing: Yes ([id number]) Assessment & Plan Assessment & Plan (1) Obesity, morbid, BMI 50 or higher: Code(s): E66.01 - Morbid (severe) obesity due to excess calories Category: Medical Plan: Decrease caloric intake increase physical activity discussed with the patient (2) DM type 2 (diabetes mellitus, type 2): Code(s): E11.9 - Type 2 diabetes mellitus without complications Category: Medical Plan: A1c is 9.1, ADA diet increase exercise weight loss discussed with the patient. She will restart metformin and start Ozempic 0.25 mg weekly. Patient was advised to check her blood glucose daily follow-up in 1 month (3) HTN (hypertension): Code(s): I10 - Essential (primary) hypertension Category: Medical Plan: Continue current medications (4) Annual physical exam: Code(s): Z00.00 - Encounter for general adult medical examination without abnormal findings Category: Medical Plan: Well-balanced diet regular physical activity discussed with the patient she is up-to-date with mammogram Pap smear and colonoscopy (5) Asthma: Code(s): J45.909 - Unspecified asthma, uncomplicated Category: Medical Plan: For asthma exacerbation prednisone taper is prescribed, patient will start albuterol and will follow-up in 1 month or sooner Medications: New albuterol sulfate 90 mcg/actuation 2 puffs inhalation Q6H PRN 6.7 grams 0RF shortness of breath or wheezing Ozempic (semaglutide) for 4 weeks 0.25 mg (0.368 mL) subcut QWEEK 3 mL 0RF NS semaglutide 0.5 mg (0.374 mL) subcut QWEEK 1.5 mL 0RF prednisone 2 tabl po x 3 days then 1 tabl po qd orally daily; 9 tabs 0RF
== END 2024-06-10 14:08 | disposition home or self-care (01) ==
PROVIDERS: PCP Internal Medicine; Visit Provider Internal Medicine
DX: Z00.00 Encounter for general adult medical examination without abnormal findings (principal); E66.01 Morbid (severe) obesity due to excess calories; E11.9 Type 2 diabetes mellitus without complications; Z68.43 Body mass index [BMI] 50.0-59.9, adult; I10 Essential (primary) hypertension; J45.909 Unspecified asthma, uncomplicated

== ENCOUNTER → 2024-06-10 13:03 | Outpatient (BNVA) | payer OTHER, SELFPAY | PROVIDERS: PCP Internal Medicine; Visit Provider Internal Medicine | DX: Z00.00 Encounter for general adult medical examination without abnormal findings (principal); E66.01 Morbid (severe) obesity due to excess calories; Z68.43 Body mass index [BMI] 50.0-59.9, adult; E11.9 Type 2 diabetes mellitus without complications; I10 Essential (primary) hypertension; J45.909 Unspecified asthma, uncomplicated | CPT/HCPCS: 96127 ==

== ENCOUNTER 2024-07-09 09:18 | Outpatient (AMB) | payer OTHER, SELFPAY ==
[2024-07-09 09:21] VITALS: BP 124/66; PULSE 91; RESP 20; TEMP 36.6; O2SAT 96; BMI 50.0
--- NOTE | 2024-07-09 09:21 | MHC.PC.OV ---
Vital Signs 07/09/24 09:21 Height 5 ft 6 in Weight 310 lb BMI 50.0 BP 124/66 Blood Pressure Location Lt brachial Position Sitting Respiration 20 Pulse 91 Pulse Source Pulse Oximeter Temp 97.9 F Temp Source Oral Pulse Oximetry (%) 96 Oxygen Delivery Method Room Air Intake Visit Reasons: 1 months f/up Intake Note: Pt is here today for 1 month follow up visit. Pt states that she needs refill on Metformin. Allergies No Known Allergies Allergy (Verified 07/09/24 09:21) Medication List - Last Reconciled 07/09/24 by Lisa Luo MD albuterol sulfate 90 mcg/actuation 2 puffs inhalation Q6H PRN amlodipine-olmesartan 10-40 mg 1 tab PO DAILY blood sugar diagnostic (Accu-Chek Guide test strips) As directed to test blood sugar once a day blood-glucose meter (Accu-Chek Guide Glucose Meter) As directed lancets (Accu-Chek Softclix Lancets) As directed to test blood sugar once a day metformin ER 750 mg PO DAILY Ozempic (semaglutide) 0.25 mg (0.368 mL) subcut QWEEK NS semaglutide 0.5 mg (0.374 mL) subcut QWEEK triamterene-hydrochlorothiazid 37.5-25 mg 1 cap PO DAILY Tobacco use date assessed: 07/09/24 Dental Screening Dental Screen Date: 06/10/24 HPI 1 months f/up HPI Details Pt presents for f/u DM2, HTN. Pt has not been monitor her blood glucose. She lost 9 lb on 0.25 mg of Ozempic for 1 month. Patient has been following ADA diet and eating smaller portions. [facility] Surgical History No pertinent past surgical history Family History Mother Mental health disorder Father HTN (hypertension) Social History Household Members Other:: lives with son, 4 adult children, works at [employer], smokes 4 cig, Housing: House Patient Tobacco Use Status: Current everyday Tobacco user Cigarettes Per Day: 4 e-Cigarette/Vaping Use: Never Used service: No Current occupational status: employed Cognitive needs: No Hearing needs: No Vision needs: No Questionnaire Thrive Questionnaire Date Thrive assessed: 06/10/24 I am a: Patient What is your living situation today?: I have a steady place to live Within the past 12 months, did the food you bought not last and you didn't have the money to get more?: Never true Within the past 12 months, did you worry whether your food would run out before you got money to buy more?: Never true Do you have trouble paying for medicines?: Yes Do you have trouble getting transportation to medical appointments?: No Do you have trouble paying your heating and electricity bill?: No Do you have trouble taking care of your child, family member or friend?: No Do you have trouble with day-to-day activities such as bathing, preparing meals, shopping, managing finances, etc.?: No Are you currently unemployed and looking for a job?: No Are you interested in more education?: No Please select the resources that you would like help with: None Currently or been in a relationship where the following occur: No concerns reported THRIVE Score: 0 MIGUEL ANGEL-7 AMB Questionnaire MIGUEL ANGEL-7 Date MIGUEL ANGEL - 7 assessed: 06/10/24 Source: Developed by Drs. Duane Pan, Janina García, Jones Johnson and colleagues, with an educational michelle from [employer] Review of Systems Const All systems reviewed & are unremarkable except as noted in HPI and below Eyes Reports no additional complaints ENT Reports no additional complaints Card Reports no additional complaints Resp Reports no additional complaints GI Reports no additional complaints Reports no additional complaints Physical exam (Primary Care) Vital Signs: Last Vital Signs Temp 97.9 F 07/09/24 09:21 Pulse 91 07/09/24 09:21 Resp 20 07/09/24 09:21 BP 124/66 07/09/24 09:21 Pulse Ox 96 07/09/24 09:21 Oxygen Delivery Method Room Air 07/09/24 09:21 BMI result Body Mass Index 50.0 Tobacco/Smoking Status: Tobacco use Status Tobacco use date assessed 07/09/24 07/09/24 09:26 Patient Tobacco Use Status Current everyday Tobacco 07/09/24 09:26 e-Cigarette/Vaping Use Never Used 07/09/24 09:26 Thrive Assessment: Date of Thrive Assessment Date Thrive assessed 06/10/24 07/09/24 09:26 Currently or been in a relationship where the following occur: No concerns reported Const General: no acute distress HENMT Head: Yes normal to inspection Resp Effort & Inspection: normal respiratory effort Auscultation: clear to auscultation bilaterally Cardio Rhythm: regular rhythm Heart sounds: S1 normal heart sound present and S2 normal heart sound present Results AMB Random Glucose (hemocue) AMB Random Glucose (hemocue) 113 mg/dL Last Edit by KOSTAS Baker on 07/09/24 09:48 Coding Level of Care Code Est Pt Level 4 (71781) Diagnoses HTN (hypertension) I10 Hyperlipidemia E78.5 DM type 2 (diabetes mellitus, type 2) E11.9 Assessment & Plan Assessment & Plan (1) HTN (hypertension): Code(s): I10 - Essential (primary) hypertension Category: Medical Plan: Continue current medications (2) Hyperlipidemia: Code(s): E78.5 - Hyperlipidemia, unspecified Category: Medical Plan: Continue low-cholesterol diet (3) DM type 2 (diabetes mellitus, type 2): Code(s): E11.9 - Type 2 diabetes mellitus without complications Category: Medical Plan: Fasting blood glucose today is 113, ADA diet increase physical activity discussed with the patient she will restart metformin continue Ozempic 0.25 another month and then increase to 0.5 mg. Follow-up in 2 months with a fasting labs before Orders: Orders AMB Random Glucose (hemocue) Today Z13.9 - Encounter for screening, unspecified Comprehensive [place]. Panel Fast 2 Months E11.9 - Type 2 diabetes mellitus without complications, E78.5 - Hyperlipidemia, unspecified, I10 - Essential (primary) hypertension, J45.909 - Unspecified asthma, uncomplicated Lipid Panel 2 Months E11.9 - Type 2 diabetes mellitus without complications, E78.5 - Hyperlipidemia, unspecified, I10 - Essential (primary) hypertension, J45.909 - Unspecified asthma, uncomplicated Complete Blood Count Auto Diff 2 Months E11.9 - Type 2 diabetes mellitus without complications, E78.5 - Hyperlipidemia, unspecified, I10 - Essential (primary) hypertension, J45.909 - Unspecified asthma, uncomplicated IRON PROFILE 2 Months E11.9 - Type 2 diabetes mellitus without complications, E78.5 - Hyperlipidemia, unspecified, I10 - Essential (primary) hypertension, J45.909 - Unspecified asthma, uncomplicated Vitamin B12 and Folate 2 Months E11.9 - Type 2 diabetes mellitus without complications, E78.5 - Hyperlipidemia, unspecified, I10 - Essential (primary) hypertension, J45.909 - Unspecified asthma, uncomplicated Microalbumin, Random (w Creat) 2 Months E11.9 - Type 2 diabetes mellitus without complications, E78.5 - Hyperlipidemia, unspecified, I10 - Essential (primary) hypertension, J45.909 - Unspecified asthma, uncomplicated Hemoglobin A1c 2 Months E11.9 - Type 2 diabetes mellitus without complications, E78.5 - Hyperlipidemia, unspecified, I10 - Essential (primary) hypertension, J45.909 - Unspecified asthma, uncomplicated TSH reflex Free T4 2 Months E11.9 - Type 2 diabetes mellitus without complications, E78.5 - Hyperlipidemia, unspecified, I10 - Essential (primary) hypertension, J45.909 - Unspecified asthma, uncomplicated Medications: Changed From Ozempic (semaglutide) for 4 weeks 0.25 mg (0.368 mL) subcut QWEEK 3 mL 4RF NS To Ozempic (semaglutide) 0.25 mg (0.368 mL) subcut QWEEK 3 mL 4RF NS Refilled metformin ER 750 mg PO DAILY 90 tabs 1RF Discontinued semaglutide Discontinued Reason: Doctor's Order 0.5 mg (0.374 mL) subcut QWEEK 1.5 mL 0RF
== END 2024-07-09 09:47 | disposition home or self-care (01) ==
LOC: HO.HMCC 09:19
PROVIDERS: PCP Internal Medicine; Visit Provider Internal Medicine
DX: I10 Essential (primary) hypertension (principal); E78.5 Hyperlipidemia, unspecified; E11.9 Type 2 diabetes mellitus without complications; Z13.9 Encounter for screening, unspecified

== ENCOUNTER → 2024-07-09 09:18 | Outpatient (BNVA) | payer OTHER, SELFPAY | PROVIDERS: PCP Internal Medicine; Visit Provider Internal Medicine | DX: E11.9 Type 2 diabetes mellitus without complications (principal); I10 Essential (primary) hypertension; E78.5 Hyperlipidemia, unspecified | CPT/HCPCS: 82948 ==

== ENCOUNTER 2024-09-17 09:07 | Outpatient (AMB) | payer OTHER, SELFPAY ==
--- NOTE | 2024-09-17 09:10 | MHC.PC.OV ---
Vital Signs 09/17/24 09:13 Height 5 ft 6 in Weight 294 lb BMI 47.4 BP 122/60 Blood Pressure Location Lt brachial Position Sitting Respiration 16 Pulse 82 Pulse Source Pulse Oximeter Temp 97.8 F Temp Source Oral Pulse Oximetry (%) 100 Oxygen Delivery Method Room Air Intake Visit Reasons: 2m follow up Intake Note: Pt is here today for her 2mo. f/u Allergies No Known Allergies Allergy (Verified 09/17/24 09:10) Medication List - Last Reconciled 09/17/24 by Lisa Luo MD amlodipine-olmesartan 10-40 mg 1 tab PO DAILY blood sugar diagnostic (Accu-Chek Guide test strips) As directed to test blood sugar once a day blood-glucose meter (Accu-Chek Guide Glucose Meter) As directed lancets (Accu-Chek Softclix Lancets) As directed to test blood sugar once a day metformin ER 750 mg PO DAILY Ozempic (semaglutide) 0.25 mg (0.368 mL) subcut QWEEK NS triamterene-hydrochlorothiazid 37.5-25 mg 1 cap PO DAILY Tobacco use date assessed: 09/17/24 Dental Screening Dental Screen Date: 09/17/24 Did you have a dental visit in the last 12 months?: Yes Did you have a dental problem in the last 6 months where you did not have access to dental care?: No Was dental information given to patient?: Patient has dentist HPI 2m follow up HPI Details Patient presents for the follow-up type 2 diabetes hypertension. She has been tolerating Ozempic well and lost 15 lb in 2 months. She reports intermittent constipation. Patient reports blood glucose readings between 100-115 fasting. She was seen by Orthopedic with diagnosed with severe osteoarthritis of both knees and had cortisone injection with temporary relief. [facility] Medical History (Updated 09/17/24 @ 09:43 by Lisa Luo MD) Osteoarthritis of knees, bilateral HTN (hypertension) Hyperlipidemia DM type 2 (diabetes mellitus, type 2) Obesity, morbid, BMI 50 or higher Surgical History No pertinent past surgical history Family History Mother Mental health disorder Father HTN (hypertension) Social History Household Members Other:: lives with son, 4 adult children, works at [employer], smokes 4 cig, Housing: House Patient Tobacco Use Status: Current everyday Tobacco user Cigarettes Per Day: 4 e-Cigarette/Vaping Use: Never Used service: No Current occupational status: employed Cognitive needs: No Hearing needs: No Vision needs: No Questionnaire Thrive Questionnaire Date Thrive assessed: 06/10/24 I am a: Patient What is your living situation today?: I have a steady place to live Within the past 12 months, did the food you bought not last and you didn't have the money to get more?: Never true Within the past 12 months, did you worry whether your food would run out before you got money to buy more?: Never true Do you have trouble paying for medicines?: Yes Do you have trouble getting transportation to medical appointments?: No Do you have trouble paying your heating and electricity bill?: No Do you have trouble taking care of your child, family member or friend?: No Do you have trouble with day-to-day activities such as bathing, preparing meals, shopping, managing finances, etc.?: No Are you currently unemployed and looking for a job?: No Are you interested in more education?: No Please select the resources that you would like help with: None Currently or been in a relationship where the following occur: No concerns reported THRIVE Score: 0 MIGUEL ANGEL-7 AMB Questionnaire MIGUEL ANGEL-7 Date MIGUEL ANGEL - 7 assessed: 06/10/24 Source: Developed by Drs. Duane Pan, Janina García, Jones Johnson and colleagues, with an educational michelle from [employer]. Review of Systems Const All systems reviewed & are unremarkable except as noted in HPI and below Eyes Reports no additional complaints ENT Reports no additional complaints Card Reports no additional complaints Resp Reports no additional complaints GI Reports no additional complaints Reports no additional complaints Physical exam (Primary Care) Vital Signs: Last Vital Signs Temp 97.8 F 09/17/24 09:13 Pulse 82 09/17/24 09:13 Resp 16 09/17/24 09:13 BP 122/60 09/17/24 09:13 Pulse Ox 100 09/17/24 09:13 Oxygen Delivery Method Room Air 09/17/24 09:13 BMI result Body Mass Index 47.4 Tobacco/Smoking Status: Tobacco use Status Tobacco use date assessed 09/17/24 09/17/24 09:11 Patient Tobacco Use Status Current everyday Tobacco 09/17/24 09:11 e-Cigarette/Vaping Use Never Used 09/17/24 09:11 Thrive Assessment: Date of Thrive Assessment Date Thrive assessed 06/10/24 09/17/24 09:11 Currently or been in a relationship where the following occur: No concerns reported Const General: no acute distress HENMT Mouth: Normal oral and palatal mucosa present Resp Effort & Inspection: normal respiratory effort Auscultation: clear to auscultation bilaterally Cardio Rhythm: regular rhythm Heart sounds: S1 normal heart sound present and S2 normal heart sound present GI Inspection: Yes normal to inspection Palpation (GI): Soft to palpation Percussion: Yes normal to percussion Auscultation: normal bowel sounds Extrem Other: Diabetic foot exam skin is intact monofilament and vibration sensation intact bilaterally Results AMB Hemoglobin A1c AMB Hemoglobin A1c 5.3 % Last Edit by Arlette García CMA on 09/17/24 09:25 Results Reviewed Results Reviewed: Laboratory Last Values Hgb A1c (Clinic) 5.3 % (4.0-6.0) 09/17/24 09:12 Coding Level of Care Code Est Pt Level 4 (89186) Complex EM visit Add On G2211 Diagnoses Osteoarthritis of knees, bilateral M17.0 Obesity, morbid, BMI 50 or higher E66.01 DM type 2 (diabetes mellitus, type 2) E11.9 HTN (hypertension) I10 Assessment & Plan Assessment & Plan (1) Osteoarthritis of knees, bilateral: Comment: Severe established with [place] [facility] Code(s): M17.0 - Bilateral primary osteoarthritis of knee Category: Medical Plan: Referred to physical therapy. Patient was advised to start regular exercises on stationary bike (2) Obesity, morbid, BMI 50 or higher: Code(s): E66.01 - Morbid (severe) obesity due to excess calories Category: Medical Plan: Increase Ozempic to 1 mg weekly decreasing caloric intake increasing physical activity discussed with the patient (3) DM type 2 (diabetes mellitus, type 2): Comment: A1C 5.4 08/2024 Code(s): E11.9 - Type 2 diabetes mellitus without complications Category: Medical Plan: A1c is 5.4, continue metformin increase Ozempic to 1 mg weekly ADA diet regular exercise discussed with the patient she was advised to schedule an appointment with the compliance project manager for diabetic eye exam. Follow-up in 2 months with a fasting labs before (4) HTN (hypertension): Code(s): I10 - Essential (primary) hypertension Category: Medical Plan: Continue current medications Orders: Orders AMB Hemoglobin A1c Today E11.9 - Type 2 diabetes mellitus without complications PT Evaluation and Treatment Today M17.0 - Bilateral primary osteoarthritis of knee Hemoglobin A1c 2 Months E11.9 - Type 2 diabetes mellitus without complications, E66.01 - Morbid (severe) obesity due to excess calories, I10 - Essential (primary) hypertension Lipid Panel 2 Months E11.9 - Type 2 diabetes mellitus without complications, E66.01 - Morbid (severe) obesity due to excess calories, I10 - Essential (primary) hypertension Microalbumin, Random (w Creat) 2 Months E11.9 - Type 2 diabetes mellitus without complications, E66.01 - Morbid (severe) obesity due to excess calories, I10 - Essential (primary) hypertension Vitamin B12 and Folate 2 Months E11.9 - Type 2 diabetes mellitus without complications, E66.01 - Morbid (severe) obesity due to excess calories, I10 - Essential (primary) hypertension Comprehensive [place]. Panel Fast 2 Months E11.9 - Type 2 diabetes mellitus without complications, E66.01 - Morbid (severe) obesity due to excess calories, I10 - Essential (primary) hypertension Complete Blood Count Auto Diff 2 Months E11.9 - Type 2 diabetes mellitus without complications, E66.01 - Morbid (severe) obesity due to excess calories, I10 - Essential (primary) hypertension IRON PROFILE 2 Months E11.9 - Type 2 diabetes mellitus without complications, E66.01 - Morbid (severe) obesity due to excess calories, I10 - Essential (primary) hypertension TSH reflex Free T4 2 Months E11.9 - Type 2 diabetes mellitus without complications, E66.01 - Morbid (severe) obesity due to excess calories, I10 - Essential (primary) hypertension Medications: New semaglutide (Ozempic) 1 mg (0.75 mL) subcut QWEEK 9 mL 1RF Discontinued Ozempic (semaglutide) Discontinued Reason: Doctor's Order 0.25 mg (0.368 mL) subcut QWEEK 3 mL 4RF NS
[2024-09-17 09:13] VITALS: BP 122/60; PULSE 82; RESP 16; TEMP 36.6; O2SAT 100; BMI 47.4
--- OUTSIDE RECORDS SUMMARY | 2024-09-17 09:24 | XMS_ITS | Clinical Summary ---
Author Organization [facility] Address [address] [place] [address] Phone Care Team Providers Care Programmer Business Name Role Phone Lisa Luo MD Primary Care Provider [phone] Allergies Active Allergy Reactions Criticality Noted Date Comments Morphine Sulfate Nausea And Vomiting 11/10/2006 Medications ibuprofen (Advil Migraine) 200 mg capsule 1 CAPSULE EVERY 4 TO 6 HOURS NEEDED Active naproxen (NAPROSYN) 500 mg tablet Take 1 tablet (500 mg total) by mouth 2 (two) times a day with meals for 15 days. 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 Emergency [address] [place] [address] Primary osteoarthritis of right knee (Primary Dx) Discharge Disposition: Home or Self Care from Last 3 Months Immunizations Name Administration Dates Next Due Influenza trivalent, with preservative (Fluzone; Afluria) 6mo and older 02/03/2019,03/23/2006,03/04/2005 PPD Test 10/01/2006, 4,05/12/2002,2001 Tdap Tetanus diptheria acell ular pertussis (Boostrix; Adacel) 7yo and older 10/01/2006 Surgical History Surgery Date Site/Laterality Comments TUBAL LIGATION PROCEDURE: HISTORICAL TUBAL LIGATION Medical History Medical History Date Comments Morbid obesity (CMS/HCC V24, CMS/HCC V28) 09/28/2006 DX:Morbid obesity (HCC) Unspecified chronic liver di sease without mention of alcohol 09/28/2006 DX:Unspecified chronic live r disease without mention of alcohol Allergic rhinitis, cause unspecified 10/01/2006 DX:Allergic rhinitis, cause unspecified Dislocated shoulder 09/04/2012 DX:Dislocate d shoulder; COMMENT: Recurrent, left Family History Medical History Relation Name Comments Hypertension Father Hypertension Mother Stroke Paternal Grandmother at 95 Relation Name Status Comments Father Mother Paternal Grandmother Social History Tobacco Use Types Packs/Day Years Used Date Smoking Tobacco: Every Day Cigarettes Smokeless Tobacco: Never Alcohol Use Standard Drinks/Week Comments Yes 0 (1 standard drink = 0.6 oz pur e alcohol) Comments Unknown Sex and Gender Information Value Date Recorded Sex Assigned at Female 08/05/2024 1:43 PM EDT Legal Sex Female 10:25 AM EST Gender Identity Female 08/05/2024 1:43 PM EDT Sexual Orientation Straight 08/05/2024 1: 44 PM EDT Obstetrics History Last Filed Vital Signs Vital Sign Reading Time Taken Comments Blood Pressure 132/77 08/05/2024 11:14 AM EDT Pulse 81 08/05/2024 11:14 AM EDT Temperature 36.6 ??C (97.9 ??F) 08/05/2024 11:14 AM E DT Respiratory Rate 18 08/05/2024 11:14 AM EDT Oxygen Saturation 98% 08/05/2024 11:14 AM EDT Inhaled Oxygen Concentration - - Weight 141 kg (310 lb) 08/05/2024 11:14 AM EDT Height 167.6 cm (5' 6 ) 08/05/2024 11:14 AM EDT Body Mass Index 50.04 08/05/2024 11:14 AM EDT Plan of Treatment Health Maintenance Due Date Last Done Comments Breast Cancer Screening 1973 Hepatitis B Vaccines (1 of 3 - 19+ 3-dose series) 1992 Pneumococcal Vaccine: 50+ Years (1 of 2 - PCV) 1992 Pneumococcal Vaccine: Pediatrics (0 to 5 Years) and At-Risk Patients (6 to 64 Years) (1 of 2 - PCV) 1992 Cervical Cancer Screening: Pap Smear 10/27/2014 10/28/2011 DTaP,Tdap,and Td Vaccines (2 - Td or Tdap) 10/01/2016 10/01/2006 Zoster Vaccines (1 of 2) 10/14/2023 COVID-19 Vaccine ( season) 2023 02/22/2021, 06/21/2020, 05/24/2020 Cholesterol Screening (Lipid Panel) 04/14/2024 09/04/2012 Colorectal Cancer Screening: Colonoscopy 04/14/2024 Depression Screening 04/14/2024 HIV Screening 04/14/2024 Hypertension/CHF/CAD Annual BMP Blood Test 04/14/2024 09/04/2012 Social Influencers of Health Screening 04/14/2024 Hepatitis C Screening Completed 05/13/2000 Influenza Vaccine Completed 01/22/2024, , 03/18/2022, Additional history exists HIB Vaccines Aged Out No longer eligi ble based on patient's age to complete this topic HPV Vaccines Aged Out No longer eligi ble based on patient's age to complete this topic Hepatitis A Vaccines Aged Out No long er eligible based on patient's age to complete this topic IPV Vaccines Aged Out No longer eligi ble based on patient's age to complete this topic MMR Vaccines Aged Out No longer eligi ble based on patient's age to complete this topic Meningococcal ACWY Vaccine Aged Out N o longer eligible based on patient's age to complete this topic Meningococcal B Vaccine Aged Out No l onger eligible based on patient's age to complete this topic RSV Immunization Patients Under 20 months Aged Out No longer eligible based on patient's age to complete this topic Varicella Vaccines Aged Out No longer eligible based on patient's age to complete this topic Procedures Procedure Name Priority Date/Time Associated Diagnosis Comments XR KNEE 4+ VIEWS LEFT STAT 08/05/2024 12:05 PM EDT ANNUAL BMP BLOOD TEST Routine 09/04/2012 LIPID PANEL Routine 09/04/2012 PAP SMEAR Routine 10/28/2011 HEPATITIS C SCREENING Routine 05/13/2000 from Last 3 Months or Most Recently Relevant to Health Maintenance Results * XR Knee 4+ Views Left (08/05/2024 12:05 PM EDT) Anatomical Region Laterality Modality Lower Extremities, Knee [facility] 08/05/2024 12:2 4 PM EDT Impressions 08/05/2024 12:25 PM EDT FINDINGS/IMPRESSION: No acute fracture or dislocation. ??Severe medial compartment predominant degenerative changes. ??Small suprapatellar joint effusion with several intra-articular loose bodies. ??Soft tissue swelling around the knee -------- FINAL REPORT -------- Dictated By: SARAH MONSIVAIS Dictated Date: 08/05/2024 12:24 ET Assigned Physician: SARAH MONSIVAIS Reviewed and Electronically Signed By: SARAH MONSIVAIS Signed Date: 08/05/2024 12:25 ET Workstation ID: [id number] Transcribed By: Self Edit Transcribed Date: 08/05/2024 12:24 ET Narrative 08/05/2024 12:25 PM EDT XR KNEE 4+ VIEWS LEFT INDICATION: ??Pain TECHNIQUE: XR KNEE 4+ VIEWS LEFT COMPARISON: No priors available. Procedure Note Sarah Monsivais MD - 08/05/2024 XR KNEE 4+ VIEWS LEFT INDICATION: Pain TECHNIQUE: XR KNEE 4+ VIEWS LEFT COMPARISON: No priors available. IMPRESSION: FINDINGS/IMPRESSION: No acute fracture or dislocation. Severe medialcompartment predominant degenerative changes. Small suprapatellar jointeffusion with several intra-articular loose bodies. Soft tissue swellingaround the knee -------- FINAL REPORT -------- Dictated By: SARAH MONSIVAIS Dictated Date: 08/05/2024 12:24 ET Assigned Physician: SARAH MONSIVAIS Reviewed and Electronically Signed By: SARAH MONSIVAIS Signed Date: 08/05/2024 12:25 ET Workstation ID: [id number] Transcribed By: Self Edit Transcribed Date: 08/05/2024 12:24 ET Result [facility] Joseph Gomez MD IMG XR PROCEDURES Final Result * Annual BMP Blood Test (09/04/2012) Pathologist [facility] Annual BMP Blood Test Abstracted Historical Provider HEALTH MAINTENANCE Final Result * Lipid panel (09/04/2012) [facility] LDL/HDL Ratio 3 0 - 4 Triglycerides 106 0 - 150 mg/dL Cholesterol 165 0 - 200 mg/dL HDL 55 >=40 mg/dL LDL Cholesterol 89 0 - 100 mg/dL Blood Venous blood specimen / Unknown Result [facility] Historical Provider LAB BLOOD ORDERABLES Yamileth l Result * Pap Smear (10/28/2011) [facility] Pap smear Abstracted, no interpretation Result [facility] Historical Provider HEALTH MAINTENANCE Final Result * Hepatitis C Screening (05/13/2000) [facility] Hepatitis C Screening Abstracted Result [facility] Historical Provider HEALTH MAINTENANCE Final Result from Last 3 Months or Most Recently Relevant to Health Maintenance Insurance [employer] Care Teams Programmer Business Relationship Specialty Start Date End Date Lisa Luo MD PCP - General Internal Medicine 08/05/24
== END 2024-09-17 09:45 | disposition home or self-care (01) ==
LOC: HO.HMCC 09:08
PROVIDERS: PCP Internal Medicine; Visit Provider Internal Medicine
DX: M17.0 Bilateral primary osteoarthritis of knee (principal); E66.01 Morbid (severe) obesity due to excess calories; E11.9 Type 2 diabetes mellitus without complications; Z68.42 Body mass index [BMI] 45.0-49.9, adult; I10 Essential (primary) hypertension

== ENCOUNTER → 2024-09-17 09:07 | Outpatient (BNVA) | payer OTHER, SELFPAY | PROVIDERS: PCP Internal Medicine; Visit Provider Internal Medicine | DX: M17.0 Bilateral primary osteoarthritis of knee (principal); E66.01 Morbid (severe) obesity due to excess calories; Z68.42 Body mass index [BMI] 45.0-49.9, adult; E11.9 Type 2 diabetes mellitus without complications; I10 Essential (primary) hypertension; Z79.84 Long term (current) use of oral hypoglycemic drugs; Z79.899 Other long term (current) drug therapy | CPT/HCPCS: 83036 ==

== ENCOUNTER 2025-03-04 11:51 | Outpatient (AMB) | payer OTHER, SELFPAY ==
[2025-03-04 11:55] VITALS: BP 118/66; PULSE 70; RESP 17; TEMP 36.7; O2SAT 98; BMI 42.4
--- NOTE | 2025-03-04 11:55 | MHC.PC.OV ---
Vital Signs 03/04/25 11:55 Height 5 ft 6 in Weight 263 lb BMI 42.4 BP 118/66 Blood Pressure Location Lt brachial Position Sitting Respiration 17 Pulse 70 Pulse Source Pulse Oximeter Temp 98.1 F Temp Source Oral Pulse Oximetry (%) 98 Oxygen Delivery Method Room Air Intake Visit Reasons: weight loss f/u Intake Note: Pt is here today for a follow up visit on DM. Allergies No Known Allergies Allergy (Verified 03/04/25 12:00) Medication List - Last Reconciled 03/04/25 by Lisa Luo MD amlodipine-olmesartan 10-40 mg 1 tab PO DAILY amlodipine-olmesartan 5-40 mg 1 tab PO DAILY blood sugar diagnostic (Accu-Chek Guide test strips) As directed to test blood sugar once a day blood-glucose meter (Accu-Chek Guide Glucose Meter) As directed lancets (Accu-Chek Softclix Lancets) As directed to test blood sugar once a day Ozempic (semaglutide) 2 mg (0.75 mL) subcut QWEEK NS triamterene-hydrochlorothiazid 37.5-25 mg 1 cap PO DAILY Tobacco use date assessed: 03/04/25 Dental Screening Dental Screen Date: 03/04/25 Did you have a dental visit in the last 12 months?: Yes Did you have a dental problem in the last 6 months where you did not have access to dental care?: No Was dental information given to patient?: Patient has dentist HPI weight loss f/u HPI Details Pt presents for HTN, DM 2, stable on current medications. Patient reports fasting blood glucose readings around 100. She lost 30 lb since August on 1 mg Ozempic but her weight has plateaued. Patient is established with orthopedic surgeon for advanced osteoarthritis of both knees and has been getting cortisone injections and Synvisc. [facility] Medical History Osteoarthritis of knees, bilateral HTN (hypertension) Hyperlipidemia DM type 2 (diabetes mellitus, type 2) Obesity, morbid, BMI 50 or higher Surgical History No pertinent past surgical history Family History Mother Mental health disorder Father HTN (hypertension) Social History Household Members Other:: lives with son, 4 adult children, works at [employer], smokes 4 cig, Housing: House Patient Tobacco Use Status: Current everyday Tobacco user Cigarettes Per Day: 4 e-Cigarette/Vaping Use: Never Used service: No Current occupational status: employed Cognitive needs: No Hearing needs: No Vision needs: No Questionnaire PHQ-9 Over the last 2 weeks, how often have you been bothered by any of the following problems? 1. Little interest or pleasure in doing things: not at all 2. Feeling down, depressed, or hopeless: not at all 3. Trouble falling or staying asleep, or sleeping too much: not at all 4. Feeling tired or having little energy: not at all 5. Poor appetite or overeating: not at all 6. Feeling bad about yourself - or that you are a failure or have let yourself or your family down: not at all 7. Trouble concentrating on things, such as reading the newspaper or watching television: not at all 8. Moving or speaking so slowly that other people could have noticed. Or the opposite - being so fidgety or restless that you have been moving around a lot more than usual: not at all 9. Thoughts that you would be better off or of hurting yourself in some way: not at all Total score: 0 Depression Screening Interpretation: Negative Depression Screening Done: Yes Source: Developed by Drs. Duane Pan, Janina García, Jones Johnson and colleagues, with an educational michelle from [employer]. Thrive Questionnaire Date Thrive assessed: 06/10/24 I am a: Patient What is your living situation today?: I have a steady place to live Within the past 12 months, did the food you bought not last and you didn't have the money to get more?: Never true Within the past 12 months, did you worry whether your food would run out before you got money to buy more?: Never true Do you have trouble paying for medicines?: Yes Do you have trouble getting transportation to medical appointments?: No Do you have trouble paying your heating and electricity bill?: No Do you have trouble taking care of your child, family member or friend?: No Do you have trouble with day-to-day activities such as bathing, preparing meals, shopping, managing finances, etc.?: No Are you currently unemployed and looking for a job?: No Are you interested in more education?: No Please select the resources that you would like help with: None Currently or been in a relationship where the following occur: No concerns reported THRIVE Score: 0 MIGUEL ANGEL-7 AMB Questionnaire MIGUEL ANGEL-7 Date MIGUEL ANGEL - 7 assessed: 06/10/24 Feeling nervous, anxious, or on edge: 0 = Not at all Not being able to stop or control worryin = Not at all Worrying too much about different things: 0 = Not at all Trouble relaxin = Not at all Being so restless that it is hard to sit still: 0 = Not at all Becoming easily annoyed or irritable: 0 = Not at all Feeling afraid as if something awful might happen: 0 = Not at all Total MIGUEL ANGEL-7 score (0-4 normal; 5-9 mild; 10-14 moderate; 15-21 severe): 0 Source: Developed by Drs. Duane Pan, Janina García, Jones Johnson and colleagues, with an educational michelle from [employer]. Review of Systems Const All systems reviewed & are unremarkable except as noted in HPI and below Card Reports no additional complaints Resp Reports no additional complaints GI Reports no additional complaints Reports no additional complaints Physical exam (Primary Care) Vital Signs: Last Vital Signs Temp 98.1 F 03/04/25 11:55 Pulse 70 03/04/25 11:55 Resp 17 03/04/25 11:55 BP 118/66 03/04/25 11:55 Pulse Ox 98 03/04/25 11:55 Oxygen Delivery Method Room Air 03/04/25 11:55 BMI result Body Mass Index 42.4 Tobacco/Smoking Status: Tobacco use Status Tobacco use date assessed 03/04/25 03/04/25 12:04 Patient Tobacco Use Status Current everyday Tobacco 03/04/25 11:55 e-Cigarette/Vaping Use Never Used 03/04/25 11:55 PHQ-9: PHQ-9 Score PHQ-9: Total score 0 03/04/25 12:08 Depression Screening Interpretation: Negative Thrive Assessment: Date of Thrive Assessment Date Thrive assessed 06/10/24 03/04/25 11:55 Currently or been in a relationship where the following occur: No concerns reported Const General: no acute distress HENMT Head: Yes normal to inspection Throat: Yes posterior oropharynx normal Neck Neck: Yes supple Resp Effort & Inspection: normal respiratory effort Auscultation: clear to auscultation bilaterally Cardio Rhythm: regular rhythm Heart sounds: S1 normal heart sound present and S2 normal heart sound present GI Inspection: Yes normal to inspection Palpation (GI): Soft to palpation Percussion: Yes normal to percussion Coding Level of Care Code Est Pt Level 4 (26256) Diagnoses HTN (hypertension) I10 Hyperlipidemia E78.5 DM type 2 (diabetes mellitus, type 2) E11.9 Assessment & Plan Assessment & Plan (1) HTN (hypertension): Code(s): I10 - Essential (primary) hypertension Category: Medical Plan: Blood pressure is low and amlodipine with olmesartan 10/40 will be changed to 5/40 and patient will continue Dyazide. (2) Hyperlipidemia: Code(s): E78.5 - Hyperlipidemia, unspecified Category: Medical Plan: Continue low-cholesterol diet check lipid profile in 3 months before physical (3) DM type 2 (diabetes mellitus, type 2): Comment: A1C 5.4 08/2024 Code(s): E11.9 - Type 2 diabetes mellitus without complications Category: Medical Plan: A1c is 4.9, metformin will be discontinued. ADA diet regular physical activity discussed with the patient. Ozempic will be increased to 2 mg weekly patient will return for physical in 3 months with a fasting labs before Orders: Orders AMB Hemoglobin A1c Today Z13.9 - Encounter for screening, unspecified Complete Blood Count Auto Diff Today E11.9 - Type 2 diabetes mellitus without complications, E78.5 - Hyperlipidemia, unspecified, I10 - Essential (primary) hypertension UA w Microscopic 3 Months E11.9 - Type 2 diabetes mellitus without complications, E78.5 - Hyperlipidemia, unspecified, I10 - Essential (primary) hypertension, R73.9 - Hyperglycemia, unspecified Comprehensive [place]. Panel Fast Today E11.9 - Type 2 diabetes mellitus without complications, E78.5 - Hyperlipidemia, unspecified, I10 - Essential (primary) hypertension Lipid Panel Today E11.9 - Type 2 diabetes mellitus without complications, E78.5 - Hyperlipidemia, unspecified, I10 - Essential (primary) hypertension Microalbumin, Random (w Creat) Today E11.9 - Type 2 diabetes mellitus without complications, E78.5 - Hyperlipidemia, unspecified, I10 - Essential (primary) hypertension TSH reflex Free T4 Today E11.9 - Type 2 diabetes mellitus without complications, E78.5 - Hyperlipidemia, unspecified, I10 - Essential (primary) hypertension Medications: New Ozempic (semaglutide) 2 mg (0.75 mL) subcut QWEEK 9 mL 1RF NS amlodipine-olmesartan 5-40 mg 1 tab PO DAILY 90 tabs 0RF Discontinued semaglutide (Ozempic) Discontinued Reason: Doctor's Order 1 mg (0.75 mL) subcut QWEEK 9 mL 1RF metformin ER Discontinued Reason: Doctor's Order 750 mg PO DAILY 90 tabs 1RF
--- OUTSIDE RECORDS SUMMARY | 2025-03-04 14:16 | XMS_ITS | Clinical Summary ---
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, left Hypertension 09/04/2012 Allergic rhinitis 10/01/2006 Chronic liver disease 09/28/2006 Overview (04/13/2024): O update Morbid obesity ([facility] V24, [facility] V28) 2006 Immunizations Immunization Administration Dates Next Due Influenza trivalent, with preservative (Fluzone; Afluria) 6mo and older 02/03/2019,03/23/2006,03/04/2005 PPD Test 10/01/2006, 4,05/12/2002,2001 Tdap Tetanus diptheria acell ular pertussis (Boostrix; Adacel) 7yo and older 10/01/2006 Surgical History Surgery Date Site/Laterality Comments TUBAL LIGATION PROCEDURE: HISTORICAL TUBAL LIGATION Medical History Medical History Date Comments Morbid obesity ([facility] V24, [facility] V28) 09/28/2006 DX:Morbid obesity (HCC) Unspecified chronic [...] 81 08/05/2024 11:14 AM EDT Temperature 36.6 C (97.9 F) 08/05/2024 11:14 AM EDT Respiratory Rate 18 08/05/2024 11:14 AM EDT Oxygen Saturation 98% 08/05/2024 11:14 AM EDT Inhaled Oxygen Concentration - - Weight 141 kg (310 lb) 08/05/2024 11:14 AM EDT Height 167.6 cm (5' 6 ) 08/05/2024 11:14 AM EDT Body Mass Index 50.04 08/05/2024 11:14 AM EDT Plan of Treatment Health Maintenance Due Date Last Done Comments Breast Cancer Screening 1973 Colorectal Cancer Screening: Colonoscopy 1973 Hepatitis B Vaccines (1 of 3 - 19+ 3-dose series) 1992 Pneumococcal Vaccine: 50+ Years (1 of 2 - PCV) 1992 Cervical Cancer Screening: Pap Smear 10/27/2014 10/28/2011 DTaP,Tdap,and Td Vaccines (2 - Td or Tdap) 10/01/2016 10/01/2006 RSV Immunization Adult Patients (1 - Risk 50-74 years 1-dose series) 10/14/2023 Zoster Vaccines (1 of 2) 10/14/2023 Cholesterol Screening (Lipid Panel) 04/14/2024 09/04/2012 HIV Screening 04/14/2024 Hypertension/CHF/CAD Annual BMP Blood Test 04/14/2024 09/04/2012 Social Influencers of Health Screening 04/14/2024 Depression Screening 04/28/2024 COVID-19 Vaccine ( season) 2024 02/22/2021, 06/21/2020, 05/24/2020 Influenza Vaccine (#1) 2024 4, 02/26/2023, 03/18/2022, Additional history exists Hepatitis C Screening Completed 05/13/2000 HIB Vaccines Aged Out No longer eligi [...] Procedure Name Priority Date/Time Associated Diagnosis Comments ANNUAL BMP BLOOD TEST Routine 09/04/2012 LIPID PANEL Routine 09/04/2012 PAP SMEAR Routine 10/28/2011 HEPATITIS C SCREENING Routine 05/13/2000 from Last 3 Months or Most Recently Relevant to Health Maintenance Results * Annual BMP Blood Test (09/04/2012) Annual BMP Blood Test Abstracted us Historical Provider HEALTH MAINTENANCE Final Result * Lipid panel (09/04/2012) [facility] LDL/HDL Ratio 3 0 - 4 Triglycerides 106 0 - 150 mg/dL Cholesterol 165 0 - 200 mg/dL HDL 55 >=40 mg/dL LDL Cholesterol 89 0 - 100 mg/dL Blood Venous blood specimen / Unknown [facility] Provider LAB BLOOD ORDERABLES Yamileth l Result * Pap Smear (10/28/2011) Pathologist [facility] Pap smear Abstracted, no interpretation [facility] Provider HEALTH MAINTENANCE Final Result * Hepatitis C Screening (05/13/2000) [facility] Hepatitis C Screening Abstracted [facility] Provider HEALTH MAINTENANCE Final Result from Last 3 Months or Most Recently Relevant to Health Maintenance Insurance [employer] Care Teams Medical Appointment Scheduler Relationship Specialty Start Date End Date Lisa Luo MD PCP - General Internal Medicine 08/05/24
== END 2025-03-04 12:29 | disposition home or self-care (01) ==
LOC: HO.HMCC 11:52
PROVIDERS: PCP Internal Medicine; Visit Provider Internal Medicine
DX: I10 Essential (primary) hypertension (principal); E78.5 Hyperlipidemia, unspecified; E11.9 Type 2 diabetes mellitus without complications